=== PATIENT | male | born 1970 | race Caucasian/White ===

== ENCOUNTER 2017-01-30 21:19 | Emergency (ER) | payer OTHER ==
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
[2017-01-30] MEDS ORDERED: Proparacaine 0.5% Ophth Soln 15 ML Bottle EYEBOTH ONE (21:45)
[2017-01-31 02:22] VITALS: BP 140/78
[2017-01-31] MEDS ORDERED: Bacitracin/Neomycin/Polymyxin B Ophth Oint 3.5 GM Tube EYEBOTH SCH (22:03)
[2017-01-31] MEDS ORDERED: Bacitracin/Polymyxin B Ophth Oint 3.5 GM Tube EYEBOTH SCH (22:05)
== END 2017-01-30 22:11 | disposition home or self-care (01) ==
LOC: MW.ED 21:19
DX: S05.02XA Injury of conjunctiva and corneal abrasion without foreign body, left eye, initial encounter (principal); S05.01XA Injury of conjunctiva and corneal abrasion without foreign body, right eye, initial encounter; F17.210 Nicotine dependence, cigarettes, uncomplicated; X58.XXXA Exposure to other specified factors, initial encounter
CPT/HCPCS: 99282; 99283

== ENCOUNTER 2021-04-09 18:27 | Emergency (ER) | payer OTHER ==
[2021-04-09 19:20] VITALS: BP 104/59; PULSE 69
--- NOTE | 2021-04-09 20:05 | EDM.PDOC ---
ED HPI GENERAL MEDICAL PROBLEM - General Chief Complaint: General Stated Complaint: FLIPPED 4 DOLL, LEG PAIN Time Seen by Provider: 04/09/21 19:57 - History of Present Illness INITIAL COMMENTS - FREE TEXT/NARRATIVE: History of present illness: [] The patient took 3 doll and injured his right knee. He denies any other injury. There was no loss of consciousness. He is convinced that only the right knee is hurt. Patient has significant swelling in the right knee. He has pain there which is significantly intense and sharp when he tries to stand on her to move it or touch it. Review of systems: As per history of present illness and below otherwise all systems reviewed and negative. Past medical history: As per history of present illness and as reviewed below otherwise noncontributory. Surgical history: As per history of present illness and as reviewed below otherwise noncontributory. Social history: No reported history of drug or alcohol abuse. Family history: As per history of present illness and as reviewed below otherwise noncontributory. Physical exam: Constitutional - well developed, well-nourished and in no acute distress HEENT - normocephalic, no evidence of trauma - external nose and mouth normal - no mass in neck and no JVD - mucosae moist EYES - full EOM, PERRL, no icterus - no evidence of inflammation, injection, or drainage Respiratory - no respiratory distress, equal bilateral expansion, lungs clear to auscultation and no abnormal lung sounds Cardiovascular -warm pink digits in the right lower extremity with good pulses in the right lower extremity distally. Regular Rhythm with S1 and S2 appreciated and no murmur, gallop or rub. GI - abdomen soft without distension or organomegaly - normal bowel sounds - no guard or rebound Musculoskeletal tender swelling of the right knee. No gross deformity of long bones or joints - no tenderness, swelling or edema Neurologic -motor sensory intact in the distal right lower extremity. Alert and oriented times four - CN II-XII grossly intact - motor sensory and coordination symmetrically normal Psychiatric - appropriate mood and affect with normal thought content Hematologic - No petechiae or purpura - mucosa appropriate color and sclera not pale - normal nail bed color and refill Integument -abrasion to the right knee. Small abrasion of the right elbow which she says is not from this trauma. 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 No rash or evidence of trauma - normal turgor Diagnostics: [] Therapeutics: [] Impression: [] Plan: [] Definitive disposition and diagnosis as appropriate pending reevaluation and review of above. Right Knee Pain Score (Numeric/FACES): 8 - Related Data Allergies Allergy/AdvReac Type Severity Reaction Status Date / Time No Known Allergies Allergy Verified 01/30/17 21:27 Home Meds: Home Meds Doxycycline [Vibramycin] 100 mg PO Q12HR #20 cap 03/13/15 [Rx] Bacitracin/HC/Neomycin/Polymyx [Cortisporin Ophth Oint] 3.5 gm EYEBOTH Q3H #1 tube 01/30/17 [Rx] Acetaminophen/oxyCODONE [Percocet 325-10 MG] 1 tab PO Q4H PRN #14 tab 04/09/21 [Rx] Past Medical History HEENT History: Reports: None Cardiovascular History: Reports: None Respiratory History: Reports: None Gastrointestinal History: Reports: None Genitourinary History: Reports: None Musculoskeletal History: Reports: None Neurological History: Reports: None Psychiatric History: Reports: None Endocrine/Metabolic History: Reports: None Hematologic History: Reports: None Immunologic History: Reports: None Oncologic (Cancer) History: Reports: None Dermatologic History: Reports: None - Infectious Disease History Infectious Disease History: Reports: None - Past Surgical History Head Surgeries/Procedures: Reports: None GI Surgical History: Reports: Appendectomy, Hernia, Abdominal, Hernia, Inguinal Social & Family History - Family History Family Medical History: No Pertinent Family History - Tobacco Use Tobacco Use Status *Q: Current Every Day Tobacco User Years of Tobacco use: 40 Packs/Tins Daily: 1 - Caffeine Use Caffeine Use: Reports: None - Recreational Drug Use Recreational Drug Use: No ED ROS GENERAL - Review of Systems Review Of Systems: Comprehensive ROS is negative, except as noted in HPI. ED EXAM, GENERAL - Physical Exam Exam: See Below Free Text/Narrative:: My physical exam is in the HPI Course - Vital Signs Text/Narrative:: 2116 hrs. the patient's x-ray is normal except for he arthrosis or effusion. The swelling so great that I do not trust the stability exam. Varus valgus anterior drawer and posterior drawer signs are negative and symmetric. Patient's advised to wear knee immobilizer ice and elevate and follow-up with orthopedic clinic to reexamine when the swelling is down. Last Recorded V/S: Last Vital Signs Temp 35.8 C L 04/09/21 19:13 Pulse 69 04/09/21 19:13 Resp 20 04/09/21 19:13 BP 104/59 L 04/09/21 19:13 Pulse Ox 96 04/09/21 19:13 - Orders/Labs/Meds Orders: Active Orders 24 hr Category Date Time Status Knee 3V Rt [CR] Stat Exams 04/09/21 20:03 Taken DME for Discharge [COMM] Stat Oth 04/09/21 21:11 Ordered Meds: Medications Discontinued Medications Generic Name Dose Route Start Last Admin Trade Name Freq PRN Reason Stop Dose Admin Oxycodone/Acetaminophen 1 tab 04/09/21 21:12 Acetaminophen/Oxycodone 325-10 Mg Tab PO 04/09/21 21:13 ONETIME ONE Departure - Departure Time of Disposition: 21:15 Disposition: Home, Self-Care 01 Condition: Good Clinical Impression: Traumatic hemarthrosis of right knee - Discharge Information Prescriptions: Acetaminophen/oxyCODONE [Percocet 325-10 MG] 1 tab PO Q4H PRN #14 tab PRN Reason: Pain (Severe 7-10) Instructions: Knee Sprain, Adult, [id number] Referrals: PCP,None [Primary Care Provider] - Forms: ED Department Discharge Additional Instructions: Ice and elevate. Wear immobilizer. Follow-up orthopedic clinic to reexamine when the swelling is down. [facility] [address], [address] [place] [address] The following information is given to patients seen in the emergency department who are being discharged to home. This information is to outline your options for follow-up care. We provide all patients seen in our emergency department with a follow-up referral. The need for follow-up, as well as the timing and circumstances, are variable depending upon the specifics of your emergency department visit. If you don't have a primary care physician on staff, we will provide you with a referral. We always advise you to contact your personal physician following an emergency department visit to inform them of the circumstance of the visit and for follow-up with them and/or the need for any referrals to a consulting specialist. The emergency department will also refer you to a specialist when appropriate. This referral assures that you have the opportunity for follow-up care with a specialist. All of these measure are taken in an effort to provide you with optimal care, which includes your follow-up. Under all circumstances we always encourage you to contact your private physician who remains a resource for coordinating your care. When calling for follow-up care, please make the office aware that this follow-up is from your recent emergency room visit. If for any reason you are refused follow-up, please contact the [facility] Emergency Department at and asked to speak to the emergency department charge nurse. Sepsis Event Note (ED) - Focused Exam Vital Signs: Vital Signs Temp Pulse Resp BP Pulse Ox 04/09/21 19:13 35.8 C L 69 20 104/59 L 96 - My Orders Last 24 Hours: My Active Orders 04/09/21 20:03 Knee 3V Rt [CR] Stat 04/09/21 21:11 DME for Discharge [COMM] Stat - Assessment/Plan Last 24 Hours: My Active Orders 04/09/21 20:03 Knee 3V Rt [CR] Stat 04/09/21 21:11 DME for Discharge [COMM] Stat
[2021-04-09] MEDS ORDERED: Acetaminophen/oxyCODONE 325-10 MG Tab PO ONE (21:12)
--- NOTE | 2021-04-09 21:25 | CR ---
Indication: Trauma. Technique: Right knee 3 views. Comparison: None. Findings/Impression: Bones: Alignment is normal. No fractures or bone lesions. Joint spaces: Unremarkable. Soft tissues: There is superficial swelling anterior to the patella. Dictated by Freddy Miller MD @ 04/09/2021 9:23:34 PM (Electronically Signed)
== END 2021-04-09 21:30 | disposition home or self-care (01) ==
LOC: MW.ED 18:27
DX: S83.91XA Sprain of unspecified site of right knee, initial encounter (principal); S50.311A Abrasion of right elbow, initial encounter; Z72.0 Tobacco use; V86.59XA Driver of other special all-terrain or other off-road motor vehicle injured in nontraffic accident, initial encounter
CPT/HCPCS: 73562; 99283; A9270

== ENCOUNTER 2021-11-10 09:35 | Emergency (ER) | payer OTHER ==
[2021-11-10] MEDS ORDERED: Albuterol/Ipratropium 3.0-0.5 MG/3 ML Neb Soln NEB ONE (10:05)
[2021-11-10 10:55] LABS: CORONAVIRUS COVID-19 NAA NEGATIVE (NEGATIVE); INFLUENZA A NAA POSITIVE (NEGATIVE); INFLUENZA B NAA NEGATIVE (NEGATIVE)
[2021-11-10 11:01] LABS: BLOOD UREA NITROGEN,BUN 10 mg/dL (7.0-18.0); CARBON DIOXIDE,CO2 25.1 mmol/L (21.0-32.0); CHLORIDE,CL 105 mmol/L (98-107); GLUCOSE RANDOM 104 mg/dL (74-106); POTASSIUM,K 4.2 mmol/L (3.5-5.1); SODIUM,NA 140 mmol/L (136-148)
[2021-11-10] MEDS ORDERED: Sodium Chloride 0.9% 1,000 ML IV ONE (11:08)
[2021-11-10 13:01] VITALS: BP 126/77; PULSE 68
[2021-11-10] MEDS ORDERED: Iopamidol 755 MG/ML 500 ML Multipack Bottle IVPUSH ONE (15:36)
== END 2021-11-10 13:05 | disposition home or self-care (01) ==
LOC: MW.ED 09:35
DX: J40 Bronchitis, not specified as acute or chronic (principal); J10.89 Influenza due to other identified influenza virus with other manifestations; Z90.49 Acquired absence of other specified parts of digestive tract; Z20.822 Contact with and (suspected) exposure to COVID-19
CPT/HCPCS: 0240U; 36415; 71046; 71275; 80053; 84484; 85025; 85379; 93005; 99285; J7030; Q9967; 93010; J7620-GY

== ENCOUNTER 2021-11-24 06:26 | Day surgery (SDC) | payer OTHER ==
[~2021-11-24 06:26] MED LIST: Lactated Ringers 1,000 ML IV SCH
[2021-11-24] MEDS ORDERED: Propofol 200 MG/20 ML SDV ONE (07:23)
[2021-11-24] MEDS ORDERED: fentaNYL 100 MCG/2 ML SDV ONE (07:23)
[2021-11-24] MEDS ORDERED: ePHEDrine 50 MG/ML SDV ONE (08:18)
[2021-11-24 13:44] VITALS: BP 111/63; PULSE 68
== END 2021-11-24 09:00 | disposition home or self-care (01) ==
LOC: MW.SDS 06:26
PROVIDERS: ATTEND Surgery
DX: D12.0 Benign neoplasm of cecum (principal); D12.3 Benign neoplasm of transverse colon; K57.30 Diverticulosis of large intestine without perforation or abscess without bleeding; K62.1 Rectal polyp; K58.9 Irritable bowel syndrome, unspecified; F17.210 Nicotine dependence, cigarettes, uncomplicated; Z90.49 Acquired absence of other specified parts of digestive tract; Z98.890 Other specified postprocedural states; Z79.899 Other long term (current) drug therapy
CPT/HCPCS: 45380; 45385; J2704; J3010; J7120; 00812

== ENCOUNTER 2022-03-01 14:43 | Emergency (ER) | payer OTHER ==
[~2022-03-01 14:43] MED LIST changes: +Calcium Gluconate 10% 1 GM/10 ML SDV ONE; -Lactated Ringers 1,000 ML IV SCH
[2022-03-01] MEDS ORDERED: Tetracaine HCl/PF 0.5% 4 ML Bottle EYEBOTH ONE (15:05)
[2022-03-01 16:20] LABS: CARBON DIOXIDE,CO2 24.8 mmol/L (21.0-32.0); POTASSIUM,K 3.9 mmol/L (3.5-5.1)
[2022-03-01 19:34] LABS: CARBON DIOXIDE,CO2 24.3 mmol/L (21.0-32.0); POTASSIUM,K 4.1 mmol/L (3.5-5.1)
[2022-03-01 20:03] VITALS: BP 151/94; PULSE 76
== END 2022-03-01 20:03 | disposition home or self-care (01) ==
LOC: MW.ED 14:43
DX: Z77.098 Contact with and (suspected) exposure to other hazardous, chiefly nonmedicinal, chemicals (principal)
CPT/HCPCS: 36415; 71045; 80053; 83735; 85025; 93005; 99284; J0610; 93010

== ENCOUNTER 2023-07-08 19:11 | Observation (INO) | payer BC ==
[2023-07-08 20:15] LABS: BASOPHILS ABSOLUTE AUTO 0.08 K/uL (0.00-0.20); BASOPHILS PERCENT AUTO 0.5 % (0.0-1.0); EOSINOPHILS ABSOLUTE AUTO 0.07 K/uL (0.00-0.45); EOSINOPHILS PERCENT AUTO 0.5 % (0.0-6.0); HEMATOCRIT 39.1 % (42.0-52.0); HEMOGLOBIN 13.5 g/dL (14.0-18.0); IMMATURE GRAN ABSOLUTE AUTO 0.03 K/uL (0.00-0.05); IMMATURE GRAN PERCENT AUTO 0.2 % (0.0-0.4); LYMPHOCYTES ABSOLUTE AUTO 2.03 K/uL (1.00-4.80); LYMPHOCYTES PERCENT AUTO 13.9 % (24.0-44.0); MEAN CORPUSCULAR HEMOGLOBIN 31.1 pg (28.0-32.0); MEAN CORPUSCULAR HGB CONC 34.5 g/dL (32.0-36.0); MEAN CORPUSCULAR VOLUME 90.1 fL (83.0-99.0); MEAN PLATELET VOLUME 9.6 fL (9.4-12.4); MONOCYTES ABSOLUTE AUTO 1.45 K/uL (0.00-0.80); MONOCYTES PERCENT AUTO 9.9 % (0.0-8.0); NEUTROPHILS ABSOLUTE AUTO 10.93 K/uL (1.80-7.70); PLATELET COUNT,PLT 264 K/uL (150-400); RED BLOOD CELL COUNT 4.34 M/uL (4.52-5.90); WHITE BLOOD CELL COUNT,WBC 14.59 K/uL (3.9-11.3)
[2023-07-08 20:41] LABS: A/G RATIO 0.9 (0.9-1.6); ALBUMIN 3.2 g/dL (3.4-5.0); BILIRUBIN TOTAL 0.6 mg/dL (0.2-1.0); CALCIUM 8.8 mg/dL (8.5-10.1); CARBON DIOXIDE,CO2 25.5 mmol/L (21.0-32.0); CREATININE 0.9 mg/dL (0.8-1.3); EST CRCL DRUG DOSING (CG) 101.79 mL/min; POTASSIUM,K 4.1 mmol/L (3.5-5.1); PROTEIN TOTAL,TP 6.8 g/dL (6.4-8.2)
[2023-07-08] MEDS ORDERED: Morphine 4 MG/ML Syringe IVPUSH ONE (20:56)
[2023-07-08] MEDS ORDERED: Sodium Chloride 0.9% 2.5 ML Syringe FLUSH PRN ×2 (20:56→22:31)
[2023-07-08] MEDS ORDERED: Sodium Chloride 0.9% 1,000 ML IV ONE (20:56)
[2023-07-08] MEDS ORDERED: Naloxone 0.4 MG/ML SDV IVPUSH PRN ×2 (20:56→22:37)
[2023-07-08] MEDS ORDERED: Sodium Chloride 0.9% 10 ML Syringe FLUSH PRN ×2 (20:56→22:31)
[2023-07-08 21:06] LABS: COLOR,URINE YELLOW; GLUCOSE,URINE NEGATIVE (NEGATIVE); KETONES,URINE TRACE mg/dL (NEGATIVE); LEUKOCYTE ESTERASE,URINE NEGATIVE (NEGATIVE); NITRITE,URINE NEGATIVE (NEGATIVE); OCCULT BLOOD,URINE TRACE-INTACT (NEGATIVE); PROTEIN,URINE NEGATIVE (NEGATIVE); UROBILINOGEN,URINE 0.2 EU/dL (<2.0)
[2023-07-08 21:16] LABS: BILIRUBIN,URINE SMALL (NEGATIVE)
[2023-07-08 21:17] LABS: APPEARANCE,URINE HAZY
[2023-07-08 21:31] LABS: BACTERIA,URINE FEW (NEGATIVE); EPITHELIAL CELLS,URINE RARE (NONE-FEW); RBC,URINE 0-2 (0-2/HPF); WBC,URINE 0-2 (0-5/HPF)
[2023-07-08] MEDS ORDERED: cefTRIAXone 1 GM in Sodium Chloride 0.9% 50 ML IV ONE (21:52)
[2023-07-08] MEDS ORDERED: Acetaminophen 325 MG Tab PO PRN (22:31)
[2023-07-08] MEDS ORDERED: Acetaminophen 650 MG Supp RECTAL PRN (22:31)
[2023-07-08] MEDS ORDERED: Sodium Chloride 0.9% 20 ML SDV IV PRN (22:31)
[2023-07-08] MEDS ORDERED: Ondansetron 4 MG/2 ML SDV IVPUSH PRN (22:37)
[2023-07-08] MEDS: Sodium Chloride 0.9% 1,000 ML IV SCH (22:38)
[2023-07-08] MEDS: Morphine 2 MG/ML SYRINGE IVPUSH PRN (23:52)
[2023-07-09] MEDS ORDERED: Piperacillin/Tazobactam 3.375 GM in Sodium Chloride 0.9% 100 ML IV SCH (02:00)
[2023-07-09] MEDS: Morphine 2 MG/ML SYRINGE IVPUSH PRN ×6 (02:00→15:56)
[2023-07-09] MEDS: Sodium Chloride 0.9% 1,000 ML IV SCH (06:31)
[2023-07-09 06:57] LABS: BASOPHILS ABSOLUTE AUTO 0.06 K/uL (0.00-0.20); BASOPHILS PERCENT AUTO 0.6 % (0.0-1.0); EOSINOPHILS PERCENT AUTO 1.9 % (0.0-6.0); HEMOGLOBIN 12.5 g/dL (14.0-18.0); IMMATURE GRAN ABSOLUTE AUTO 0.02 K/uL (0.00-0.05); IMMATURE GRAN PERCENT AUTO 0.2 % (0.0-0.4); LYMPHOCYTES ABSOLUTE AUTO 1.75 K/uL (1.00-4.80); LYMPHOCYTES PERCENT AUTO 16.5 % (24.0-44.0); MEAN CORPUSCULAR HEMOGLOBIN 32.9 pg (28.0-32.0); MEAN CORPUSCULAR HGB CONC 35.7 g/dL (32.0-36.0); MEAN CORPUSCULAR VOLUME 92.1 fL (83.0-99.0); MEAN PLATELET VOLUME 10.4 fL (9.4-12.4); MONOCYTES PERCENT AUTO 10.3 % (0.0-8.0); NEUTROPHILS PERCENT AUTO 70.5 % (41.0-71.0); PLATELET COUNT,PLT 249 K/uL (150-400); WHITE BLOOD CELL COUNT,WBC 10.63 K/uL (3.9-11.3)
[2023-07-09 07:24] LABS: A/G RATIO 0.8 (0.9-1.6); ALBUMIN 2.6 g/dL (3.4-5.0); BILIRUBIN TOTAL 0.6 mg/dL (0.2-1.0); CALCIUM 8.3 mg/dL (8.5-10.1); CARBON DIOXIDE,CO2 26.3 mmol/L (21.0-32.0); CREATININE 0.8 mg/dL (0.8-1.3); EST CRCL DRUG DOSING (CG) 114.51 mL/min; POTASSIUM,K 4.1 mmol/L (3.5-5.1); PROTEIN TOTAL,TP 5.8 g/dL (6.4-8.2)
[2023-07-09] MEDS: Piperacillin/Tazobactam 4.5 GM in Sodium Chloride 0.9% 100 ML IV SCH ×2 (08:00→16:05)
[2023-07-09] MEDS ORDERED: Pantoprazole 40 MG in Sodium Chloride 0.9% 10 ML IVPUSH SCH (09:00)
[2023-07-09] MEDS ORDERED: fentaNYL 50 MCG/ML SDV IVPUSH PRN (09:33)
[2023-07-09] MEDS ORDERED: Ondansetron 4 MG/2 ML SDV IVPUSH PRN (09:33)
[2023-07-09] MEDS ORDERED: Naloxone 0.4 MG/ML SDV IVPUSH PRN (09:33)
[2023-07-09] MEDS ORDERED: droPERidol 5 MG/2 ML SDV IVPUSH PRN (09:33)
[2023-07-09] MEDS ORDERED: Albuterol 0.083% 2.5 MG/3 ML Neb Soln NEB PRN (09:33)
[2023-07-09] MEDS ORDERED: HYDROmorphone 1 MG/ML Syringe IVPUSH PRN (09:33)
[2023-07-09] MEDS ORDERED: Metoclopramide 10 MG/2 ML SDV IVPUSH PRN (09:33)
[2023-07-09] MEDS ORDERED: Morphine 2 MG/ML SYRINGE IVPUSH PRN (09:33)
[2023-07-09] MEDS ORDERED: Bupivacaine 0.25% 30 ML SDV ONE ×2 (10:17→12:10)
[2023-07-09] MEDS ORDERED: Ondansetron 4 MG/2 ML SDV ONE ×3 (11:49→14:17)
[2023-07-09] MEDS ORDERED: Scopalamine 1mg/3day Transdermal Patch ONE (11:49)
[2023-07-09] MEDS ORDERED: Ropivacaine 0.5% 5 MG/ML 30 ML SDV ONE (12:10)
[2023-07-09] MEDS ORDERED: EPINEPHrine 1 MG/1 ML Amp ONE (12:10)
[2023-07-09] MEDS ORDERED: fentaNYL 100 MCG/2 ML SDV ONE ×2 (12:15→13:33)
[2023-07-09] MEDS ORDERED: Propofol 200 MG/20 ML SDV ONE (12:15)
[2023-07-09] MEDS ORDERED: Rocuronium Bromide 50 MG/5 ML Syringe ONE ×2 (12:15→14:20)
[2023-07-09] MEDS ORDERED: Sugammadex Sodium 200 MG/2 ML VIAL ONE ×2 (12:15→14:25)
[2023-07-09] MEDS ORDERED: Lidocaine 2% 5 ML SDV ONE (12:15)
[2023-07-09] MEDS ORDERED: Dexamethasone 4 MG/ML 5 ML MDV ONE (12:15)
[2023-07-09] MEDS ORDERED: Ketorolac 30 MG/ML SDV ONE (12:15)
[2023-07-09] MEDS ORDERED: propofoL 50 ML ONE (14:19)
[2023-07-09] MEDS ORDERED: Magnesium Sulfate (4.06 MEQ/ML) 5 GM/10 ML SDV ONE (14:23)
[2023-07-09] MEDS ORDERED: Esmolol 100 MG/10 ML SDV ONE (14:34)
[2023-07-09] MEDS ORDERED: Acetaminophen/HYDROcodone 325-5 MG Tab PO PRN (14:59)
[2023-07-09 17:31] VITALS: BP 120/77; PULSE 78
== END 2023-07-09 17:30 | disposition home or self-care (01) ==
LOC: MW.ED 19:11 → MW.MS 22:27
PROVIDERS: ADMIT Family Medicine; ATTEND Family Medicine
DX: K80.10 Calculus of gallbladder with chronic cholecystitis without obstruction (principal); K21.9 Gastro-esophageal reflux disease without esophagitis; F17.210 Nicotine dependence, cigarettes, uncomplicated; F17.290 Nicotine dependence, other tobacco product, uncomplicated; Z98.890 Other specified postprocedural states
CPT/HCPCS: 36415; 47562; 64486; 76705; 80053; 81001; 83690; 83735; 85025; 87040; A9270; C9113; J0131; J0171; J0665; J0696; J1100; J1885; J2270; J2405; J2543; J2704; J2795; J3010; J3475; J3490; J7030; 00790; 64488; 96361; 96365; 96375; 99222; 99239; 99284; 99285-25

== ENCOUNTER 2024-12-09 10:35 | Emergency (ER) | payer BC, OTHER ==
[2024-12-09 10:49] VITALS: BP 130/80
[2024-12-09] MEDS: cefTRIAXone 1 GM in Lidocaine 1% 2.1 ML IM ONE (11:23)
[2024-12-09] MEDS ORDERED: Albuterol 0.083% 2.5 MG/3 ML Neb Soln ONE (11:30)
[2024-12-09] MEDS: Albuterol 0.083% 2.5 MG/3 ML Neb Soln NEB ONE (11:33)
[2024-12-09 12:19] VITALS: PULSE 94
== END 2024-12-09 12:19 | disposition home or self-care (01) ==
LOC: MW.ED 10:35
DX: J18.9 Pneumonia, unspecified organism (principal); Z75.3 Unavailability and inaccessibility of health-care facilities; Z90.49 Acquired absence of other specified parts of digestive tract; F17.200 Nicotine dependence, unspecified, uncomplicated
CPT/HCPCS: 71045; 87651; 93005; 94640; 96372; 99285; J0696; J1100; J2003; J7613; 99283; A9270-GY